=== PATIENT | female | born 1990 | race Caucasian/White ===

== ENCOUNTER → 2023-12-24 | Day surgery (SDC) | payer OTHER ==
[~2023-12-24] MED LIST: ABILIFY5 MG PO; CYCLOBENZAPRINE5 MG PO; DEXAMETHASONE SOD PHOS INJ 4 MG/ML SDV ONE; FENTANYL CITRATE/PF 100MCG/2 ML INJ ONE; GABAPENTIN400 MG PO; HYDROCODON-ACE1 EA11 PO; HYDROCODONE/APAP 7.5MG-325MG 1 EA TAB ONE; LIDOCAINE 2% /EPINEPHRINE 20 ML SDV INJ ONE; LIDOCAINE HCL 2% LOCAL INJ 5 ML SDV VIAL INJ ONE; MIDAZOLAM HCL 2 MG/2 ML VIAL ONE; ONDANSETRON HCL INJ 2MG/ML 2ML 2 MG/ML VIAL ONE; PROPOFOL IV EMULSION 10 MG/ML 20 ML VIAL ONE; ROCURONIUM BROMIDE 10 MG/ML 5ML VIAL IV ONE; SEVOFLURANE INHAL SOLN 250 ML PEN BTL ONE; SUCCINYLCHOLINE CHLORIDE 20 MG/ML 10ML VIAL ONE; TRAZODONE HCL100 MG PO
[2023-12-24] MEDS: LACTATED RINGER'S 1,000 ML ONE (06:49)
[2023-12-24 09:29] VITALS: TEMP 98.1
[2023-12-24] MEDS: FENTANYL CITRATE/PF 100MCG/2 ML INJ ONE (09:46)
[2023-12-24] MEDS: HYDROMORPHONE 1MG/1ML INJ ONE (10:08)
[2023-12-24] MEDS: HYDROCODONE/APAP 7.5MG-325MG 1 EA TAB PO ONE (10:50)
[2023-12-24 11:15] VITALS: BP 133/82; PULSE 89; RESP 18; O2SAT 97
== END | disposition home or self-care (01) ==
LOC: OR 05:43
PROVIDERS: ATTEND Otolaryngology Otolaryngology/Facial Plastic Surgery
DX: J35.01 Chronic tonsillitis (principal); K21.9 Gastro-esophageal reflux disease without esophagitis; F41.9 Anxiety disorder, unspecified; K57.90 Diverticulosis of intestine, part unspecified, without perforation or abscess without bleeding; K28.9 Gastrojejunal ulcer, unspecified as acute or chronic, without hemorrhage or perforation; D68.9 Coagulation defect, unspecified; D68.51 Activated protein C resistance; Z88.6 Allergy status to analgesic agent; Z88.2 Allergy status to sulfonamides; Z88.8 Allergy status to other drugs, medicaments and biological substances; Z79.899 Other long term (current) drug therapy
CPT/HCPCS: 42826; 81025; 88304; J1170; J2001; J2250; J3010; J7121; J0330; J1100; J2405